=== PATIENT | male | born 1945 | race Caucasian/White ===

== ENCOUNTER 2025-04-02 10:46 | Outpatient (REF) | payer OTHER, SELFPAY ==
--- OUTSIDE RECORDS SUMMARY | 2025-04-02 12:06 | XMS_ITS | Data Portability ---
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 Plan: Reviewed findings with the patient. Reviewed the nature natural history of the condition. Reviewed appropriate shoe gear and will get him into an OTC orthotic with metatarsal pad incorporated to offload the metatarsal heads and neuroma site. I will also help address his overpronated foot mechanics. Return in 3 to 4 weeks for reassessment. If no improvement consider targeted corticosteroid injections for both diagnostic and therapeutic purposes. The visit was 30 minutes in length and included review of the medical record before the encounter, [id number] time, communicating care to other family members or providers when necessary, ordering tests/studies when necessary, and documenting the visit in the medical record. Review of prior internal and external notes were performed, as well as review of prior test results and studies performed, when available. [email or web address] Not available 09/23/2021 15:55:05 Plan of Treatment Reminders Order Date Submit Date Provider Last Modified By Organization Details Last Modified Time Details Appointments None record ed. Lab None record ed. Referral None record ed. Procedures None record ed. Surgeries None record ed. Imaging XR, foot, 3 or more view 021 09/23/[address], [address], 16:25:09 Medication Orders None record ed. Patient TargetsNo targets recorded. Patient InstructionsNo instructions recorded. Reason for Referral None Reported. Results Created Date Observation Date Name Description Value Unit Range Abnormal Flag Note LastModifiedBy Organization Detail LastModifiedTime 09/23/20 21 bilat feet No observ ation record ed. [email or web address] [facility] [address], [address] 09/23/2021 15:45:46 09/23/20 21 XR, foot, 3 or more view No observ ation record ed. [email or web address] Hari Sosa [address], [address], 09/23/2021 15:45:14 Result Notes None recorded. Procedures Surgical History Date Name Laterality Status Provider Name and Address Organization Details Recorded Time 09/23/20 21 PPE completed [facility] 09/23/2021 15:22:51 Total knee arthroplasty completed [facility] 09/23/2021 15:25:21 Foot Surgery completed [facility] 09/23/2021 15:25:33 Imaging Results None recorded. Procedure Notes None recorded. Medical Equipment None Reported. Allergies No known drug allergies Medications Name Sig Start Date Stop Date Status Note LastModified by Organization Details LastModified Time lisinopril 20 mg-hydrochl orothiazide 12.5 mg tablet TAKE 1 TABLET BY MOUTH DAILY active Not Available Not Available No t Available ondansetron HCl 4 mg tablet TAKE 1 TABLET BY MOUTH EVERY 6 HOURS 09/23 completed Not Available Not Available Not Available clonazepam 0.5 mg tablet TAKE 1 TABLET BY MOUTH DAILY NEEDED FOR ANXIETY CSA 30 active Not Available Not Available No t Available metoprolol succinate ER 100 mg tablet,exte nded release 24 hr TAKE 1 TABLET BY MOUTH DAILY active Not Available Not Available No t Available valsartan 160 mg-hydrochl orothiazide 12.5 mg tablet TAKE 1 TABLET BY MOUTH DAILY 09/23 completed Not Available Not Available Not Available ketorolac 10 mg tablet TAKE 1 TABLET BY MOUTH EVERY 8 HOURS TILL DONE 09/23 completed Not Available Not Available Not Available hydromorpho ne 2 mg tablet TAKE 1 TO 2 TABLETS BY MOUTH EVERY 3 HOURS NEEDED FOR PAIN 09/23 completed Not Available Not Available Not Available ciprofloxac in 0.3 % eye drops INSTILL 1 DROP INTO AFFECTED EYE EVERY 2 HOURS WHILE AWAKE FOR 2 DAYS THEN 1 DROP EVERY 4 HOURS WHILE AWAKE FOR 5 DAYS 09/23 completed Not Available Not Available Not Available cephalexin 500 mg capsule TAKE 1 CAPLET BY MOUTH 4 TIMES A DAY 09/23 completed Not Available Not Available Not Available Eliquis 2.5 mg tablet TAKE 1 TABLET BY MOUTH 2 TIMES A DAY TO PREVENT CLOT 09/23 completed Not Available Not Available Not Available Vitals Date Recorded Body temperature Body weight Body mass index (BMI) Body height Provider Name and Address Organization Details Last Updated DateTime 09/23/2021 97.1 [degF] 91743.55 g 28.1 kg/m2 175.26 cm Sanjuana Yeager [facility] 09/23/2021 15:23:41 Social History None recorded. Functional Status None recorded. Mental Status None recorded. Family History Nothing Reported. Medical History Condition Response Cancer N Kidney Disease N Lung Disease N Diabetes N Heart Disease N Hypertension Y Immunizations Vaccine Type Date Status Note Provider Nam e and Address Organization Details Recorded Time COVID-19, mRNA, LNP-S, PF, 100 mcg/0.5mL dose or 50 mcg/0.25mL dose 11/29/2020 [facility]/23/2021 15:26:15 Past Encounters Encounter ID Performer Location Encounter Start Date Encounter Closed Date Diagnosis/Indication Diagnosis SNOMED-CT Code Diagnosis ICD10 Code Diagnosis Note [id number] ARELY DICKINSON DPM [address] [address] 09/23/2021 15:17:24 09/23/2021 15:55:45 Wade's neuroma of right foot 6483136637 54359 G57.61 Wade's n euroma of left foot 0666202793 38373 G57.62 Health Concerns Section Related Observation LastModified by Organization Detai ls LastModified Time None Recorded Concern Status LastModified by Organization Details LastModified Time None Recorded Advance Directives Directive None Recorded Payers Insurance Date Sequence Insurance Name Policy Number Policy Arroyo Covered Member ID Arroyo Member ID Guarantor Name 09/29/[address] [facility] ([id number]) [id number] Arely Lora [id number] Arely Lora Notes Date Note Type Note Provider Name and Address Organization Details Recorded Time 09/23/2021 text/html Arely is a 76-year-old male who presents requesting evaluation of bilateral plantar forefoot pain which has been progressive in nature over the past 6 to 12 months. He cannot recall any trauma, change in activity level, or change in shoe gear with the onset of symptoms. He is now having pain with all weightbearing activities. He will symptoms when he is off his feet. Best localizes it by pointing across the entire plantar aspect of his forefoot. Denies radiation into his toes. Note that he does have a significant history of titanium second metatarsal head replacement right foot and ORIF of a nonunited fracture left foot. ARELY DICKINSON DPM [address] [place] [address], [phone], [facility] 09/23/2021 15:55:32
== END 2025-04-02 10:47 | disposition home or self-care (01) ==
LOC: HO.BBR 10:46
PROVIDERS: PCP Internal Medicine; Visit Provider Nurse Practitioner Adult Health
DX: Z13.89 Encounter for screening for other disorder (principal)

== ENCOUNTER 2025-05-06 11:12 | Outpatient (REF) | payer OTHER, SELFPAY ==
--- OUTSIDE RECORDS SUMMARY | 2025-05-06 12:29 | XMS_ITS | Data Portability ---
Author Organization [facility] Address [address] [address] Care Team Providers Care Engineered Wood Designer Name Role Phone SULY SALOMON Primary Care Provider Assessment Encounter Date Assessment Date Assessment LastModified [...] of the medical record before the encounter, [id number] time, communicating care to other family members or providers when necessary, ordering tests/studies when necessary, and documenting the visit in the medical record. Review of prior internal and external notes were performed, as well as review of prior test results and studies performed, when available. [email or web address] Not available 09/23/2021 15:55:05 Plan of Treatment Reminders Order Date Submit Date Provider Last Modified By Organization Details Last Modified Time Details Appointments None record ed. Lab None record ed. Referral None record ed. Procedures None record ed. Surgeries None record ed. Imaging XR, foot, 3 or more view 021 09/23/[address], [address], 16:25:09 Medication Orders None record ed. Patient TargetsNo targets recorded. Patient InstructionsNo instructions recorded. Reason for Referral None Reported. Results Created Date Observation Date Name Description Value Unit Range Abnormal Flag Note LastModifiedBy Organization Detail LastModifiedTime 09/23/20 21 bilat feet No observ ation record ed. [email or web address] [employer] [address], [address] 09/23/2021 15:45:46 09/23/20 21 XR, foot, 3 or more view No observ ation record ed. [email or web address] Hari Sosa [address], [address], 09/23/2021 15:45:14 Result Notes None recorded. Procedures Surgical History Date Name Laterality Status Provider Name and Address Organization Details Recorded Time 09/23/20 21 PPE completed [facility] 09/23/2021 15:22:51 Total knee arthroplasty completed [facility] 09/23/2021 15:25:21 Foot Surgery completed [facility] 09/23/2021 15:25:33 Imaging Results [...] Not Available Vitals Date Recorded Body temperature Pain severity - 0-10 verbal numeric rating [Score] - Reported Body weight Body mass index (BMI) Body height Provider Name and Address Organization Details Last Updated DateTime 09/23/2021 97.1 [degF] 1 62887.55 g 28.1 kg/m2 175.26 cm Sanjuana Yeager [facility] 15:23:41 Social History None recorded. Functional Status None recorded. Mental Status None recorded. Family History Nothing Reported. Medical History Condition Response Lung Disease N Cancer N Kidney Disease N Diabetes N Heart Disease N Hypertension Y Immunizations Vaccine Type Date Status Note Provider Nam e and Address Organization Details Recorded Time COVID-19, mRNA, LNP-S, PF, 100 mcg/0.5mL dose or 50 mcg/0.25mL dose 11/29/2020 completed Sanjuana ugarte [facility] 09/23/2021 15:26:15 Past Encounters Encounter ID Performer Location Encounter Start Date Encounter Closed Date Diagnosis/Indication Diagnosis SNOMED-CT Code Diagnosis ICD10 Code Diagnosis Note [id number] ARELY DICKINSON DPM [address] [address] 09/23/2021 15:17:24 09/23/2021 15:55:45 Wade's neuroma of right foot [id number] 14573 G57.61 Wade's n euroma of left foot [id number] 59527 G57.62 Health Concerns Section Related Observation LastModified by Organization Detai ls LastModified Time None Recorded Concern Status LastModified by Organization Details LastModified Time None Recorded Advance Directives Directive None Recorded Payers Insurance Date Sequence Insurance Name Policy Number Policy Arroyo Covered Member ID Arroyo Member ID Guarantor Name 09/29/2021 1 [facility] ([id number]) [id number] Arely Lora [id number] Arely Lora
--- OUTSIDE RECORDS SUMMARY | 2025-05-06 12:29 | XMS_ITS ---
Author Name [facility] Organization Unknown Care Team Organization Name Specialty Phone Email Start Date End Da te [facility] ([place])
--- OUTSIDE RECORDS SUMMARY | 2025-05-06 12:30 | XMS_ITS | Clinical Summary ---
Author Organization [facility] Address [address] [place] [address] Care Team Providers Care Housing Inspector Name Role Phone Shiloh Holcomb Primary Care Provider [phone] Allergies No known active allergies Medications amLODIPine (NORVASC) 5 mg tablet SMARTSI Tablet(s) By Mouth Daily Active benzonatate (TESSALON) 100 mg capsule 04/17/2024 Active clonazePAM (KlonoPIN) 0.5 mg tablet SMARTSI Tablet(s) By Mouth Daily PRN 09/03/2024 Active ipratropium (ATROVENT) 0.06% nasal spray SMARTSIG:Krishna th Nares 04/09/2024 Active metoprolol succinate XL (TOPROL XL) 25 mg tablet SMARTSI Tablet(s) By Mouth Daily 12/27/2023 Active valsartan-hydroc hlorothiazide (DIOVAN-HCT) 320-25 mg per tablet SMARTSI Tablet(s) By Mouth Daily Active Active Problems No known active problems Social History Tobacco Use Types Packs/Day Years Used Date Smoking Tobacco: Never Assessed Sex and Gender Information Value Date Recorded Sex Assigned at Not on file Legal Sex Male 4:52 PM EDT Gender Identity Not on file Sexual Orientation Not on file Plan of Treatment Health Maintenance Due Date Last Done Comments Hepatitis B Vaccines (1 of 3 - Risk 3-dose series) 2004 RSV Vaccine (60+ years old a nd patients) (1 - 1-dose 75+ series) 2019 COVID-19 Vaccine (2023-2 5 season) 2024 Alcohol/Substance Use Screening 10/10/2024 Depression Screening and Follow-Up 10/10/2024 Health Care Proxy Review 10/10/2024 Social Drivers of Health Betzaida ual Screening 10/10/2024 Influenza Vaccine (#1) 2025 3, 08/10/2022, 07/15/2020, Additional history exists DTaP,Tdap,and Td Vaccines (2 - Tdap) 02/23/2027 02/23/2017, 11/08/2006 Pneumococcal Vaccine: 50+ Years Completed 5, 11/13/2009 Zoster Vaccines Completed 05/01/2018, 02/08, 11/04/2007 Insurance [facility] Care Teams Housing Inspector Relationship Specialty Start Date End Date Shiloh Holcomb [address] [place] [address] [address] [id number] PCP - General Internal Medicine 09/26/24
== END 2025-05-06 11:13 | disposition home or self-care (01) ==
LOC: HO.BBR 11:12
PROVIDERS: PCP Internal Medicine; Visit Provider Nurse Practitioner Adult Health
DX: Z13.89 Encounter for screening for other disorder (principal)